=== PATIENT | male | born 1970 | race African-American/Black ===

== ENCOUNTER 2021-11-13 16:32 | Emergency (ER) | payer OTHER ==
[2021-11-13 16:55] VITALS: TEMP 98.6; BMI 25.4
[2021-11-13] MEDS ORDERED: amLODIPine BESYLATE 10 MG TABLET (FP) PO ONE (18:13)
[2021-11-13] MEDS ORDERED: CARVEDILOL 25 MG TABLET (FP) PO ONE (18:13)
[2021-11-13] MEDS ORDERED: amLODIPine BESYLATE 10 MG TABLET (FP) ONE (18:24)
[2021-11-13] MEDS ORDERED: CARVEDILOL 25 MG TABLET (FP) ONE (18:25)
[2021-11-13 18:52] LABS: BASO % 0.8 % (0-2.0); EOS % 0.7 % (0-4.5); HEMATOCRIT 44.9 % (35.4-49); HEMOGLOBIN 14.6 GM/dL (11.7-16.9); LYMPH % 14.8 % (8-40); MCH 28.3 pg (25.7-33.7); MCHC 32.6 g/dl (32.0-35.9); MEAN CELL VOLUME 86.6 fl (80-96); MEAN PLT VOLUME 9.5 fl (7.5-11.1); MONO % 7.3 % (3.8-10.2); NEUT % 76.4 % (42.8-82.8); PLATELET COUNT 142 10^3/uL (134-434); RBC 5.18 M/mm3 (4.00-5.60); RDW 14.4 % (11.9-15.9); WHITE BLOOD COUNT 7.2 K/mm3 (4.0-10.0)
[2021-11-13 19:23] LABS: BLOOD UREA NITROGEN 23.2 mg/dL (7-18); CALCIUM 9.3 mg/dL (8.5-10.1)
[2021-11-13 19:24] LABS: ALBUMIN 4.2 g/dl (3.4-5.0)
[2021-11-13 19:27] LABS: CREATININE 1.5 mg/dL (0.55-1.3)
[2021-11-13 19:28] LABS: BILIRUBIN,TOTAL 0.7 mg/dL (0.2-1)
[2021-11-13 19:29] LABS: TOT PROT 7.5 g/dl (6.4-8.2)
[2021-11-13 20:56] VITALS: BP 150/94; PULSE 78
== END 2021-11-13 20:56 | disposition home or self-care (01) ==
LOC: JER 16:32
DX: I10 Essential (primary) hypertension (principal)
CPT/HCPCS: 36415; 80053; 85025; 93005; 93010; 99284-25